=== PATIENT | female | born 1950 | race Caucasian/White ===

== ENCOUNTER 2016-09-12 15:11 | Emergency (ER) | payer MEDICARE ==
[2016-09-12 16:13] VITALS: PULSE 80
--- NOTE | 2016-09-12 16:21 | ERPHSYRPT ---
- History of Present Illness Time Seen by Provider: 09/12/16 16:15 Source: patient Exam Limitations: no limitations Patient Subjective Stated Complaint: pt co pain to left buttock radiating down left leg, states feels like cramping pain, no injury,pt sees pain management this week and is getting pt for back Triage Nursing Assessment: pt alert, skin w/d,pink,resp easy,pt restless in bed , no injury noted to left hip or leg Physician History: C/O L paralumbar area radiating down L buttock and L calf area. States back pain is sharp and tightness to buttock and calf area. Started on Neurontin with minimal relief. 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 No bowel or urinary incontinence. Increase back pain with standing and movement and decrease with sitting. Pt. on [place] 10mg and did have X-ray on back along with TINGE unit with minimal relief. Able to move all extremities without numbness or tingling. Timing/Duration: day(s) (4) Method of Injury: bending, lifting Quality: radiating, sharp Back Pain Location: lumbar spine Back Pain Radiation: buttocks, upper legs, lower legs Severity of Pain-Max: severe Severity of Pain-Current: severe Modifying Factors: Improves With: immobilization (improves), movement (worsens) Associated Symptoms: lower back pain, muscle spasms, No fever, No chills, No loss of bowel control, No dizziness, No numbness in legs/feet, No tingling in legs/feet Previous symptoms: same symptoms as today, recently seen, recently treated Allergies/Adverse Reactions: No Known Drug Allergies Allergy (Verified 09/12/16 15:25) Home Medications: Alprazolam 1 mg [Xanax 1 mg] 0 mg PO TID 07/02/16 [History] Dicyclomine HCl 20 mg [Bentyl 20 mg] 0 mg PO .PRN 07/02/16 [History] Hydrocodone/APAP 10/325 mg [[place] 10/325 MG Tablet] 1 tab PO Q4H PRN PRN 07/02/16 [History] Ropinirole HCl 5 mg PO HS 07/02/16 [History] Hx Tetanus, Diphtheria Vaccination/Date Given: No Hx Influenza Vaccination/Date Given: No Hx Pneumococcal Vaccination/Date Given: No Immunizations Up to Date: Yes - Review of Systems Constitutional: No Fever, No Chills Eyes: No Symptoms Ears, Nose, & Throat: No Symptoms Respiratory: No Cough, No Dyspnea Cardiac: No Chest Pain, No Edema, No Syncope Abdominal/Gastrointestinal: No Abdominal Pain, No Nausea, No Vomiting, No Diarrhea Genitourinary Symptoms: No Dysuria Musculoskeletal: Back Pain, No Neck Pain Skin: No Rash Neurological: No Dizziness, No Focal Weakness, No Sensory Changes Psychological: No Symptoms Endocrine: No Symptoms All Other Systems: Reviewed and Negative - Past Medical History Pertinent Past Medical History: Yes Neurological History: No Pertinent History ENT History: No Pertinent History Cardiac History: No Pertinent History Respiratory History: No Pertinent History Endocrine Medical History: No Pertinent History Musculoskeletal History: Other GI Medical History: No Pertinent History, Colorectal Cancer History: No Pertinent History Psycho-Social History: Depression Female Reproductive Disorders: No Pertinent History Other Medical History: R SHOULDER RTC ISSUES NO SURGERY,chronic back pain - Past Surgical History Past Surgical History: Yes Neuro Surgical History: No Pertinent History Cardiac: No Pertinent History Respiratory: No Pertinent History Gastrointestinal: Appendectomy, Cholecystectomy, Colon Resection Genitourinary: No Pertinent History Musculoskeletal: No Pertinent History, Orthopedic Surgery Female Surgical History: Hysterectomy - Social History Smoking Status: Never smoker Exposure to second hand smoke: No Drug Use: none Patient Lives Alone: No - Female History Hx Last Menstrual Period: post Hx Now: No - Nursing Vital Signs Temperature: 97.0 F Temperature Source: Oral Pulse Rate: 80 Respiratory Rate: 18 Pain Intensity: 10 - Physical Exam General Appearance: no apparent distress, alert Eye Exam: PERRL/EOMI, eyes nml inspection Neck Exam: normal inspection, non-tender, supple, full range of motion, No meningismus, No midline tenderness Respiratory Exam: normal breath sounds, lungs clear, No respiratory distress Cardiovascular Exam: regular rate/rhythm, normal heart sounds Gastrointestinal Exam: soft, No tenderness, No mass Back Exam: vertebral tenderness (L paralumbar tenderness), decreased range of motion, muscle spasm (L paralumbar area) Extremity Exam: normal inspection, normal range of motion, No calf tenderness, No pedal edema Peripheral Pulses: dorsalis-pedis (R): 2+, dorsalis-pedis (L): 2+ Neurologic Exam: alert, oriented x 3, cooperative, program clerk II-XII nml as tested, normal mood/affect, nml station & gait, sensation nml, No motor deficits Skin Exam: normal color, warm, dry, No rash SpO2 Interpretation: normal SpO2: 99 Oxygen Delivery: Room Air - Course Nursing assessment & vital signs reviewed: Yes - Progress Progress: improved Progress Note: 09/12/16 16:29 Given Demerol/Solumedrol with some relief of her symptoms. Counseled pt/family regarding: diagnosis - Departure Time of Disposition: 16:29 Departure Disposition: Home Clinical Impression: Low back pain potentially associated with radiculopathy Condition: Stable Critical Care Time: No Instructions: Chronic Pain -- Adult, Low Back Pain Additional Instructions: May take Alleve for pain/inflamation. RX: Prednisone Return for worse pain, numbness, weakness or any problems.
[2016-09-12] MEDS ORDERED: DEMEROL 50 MG IM ONE (16:31)
[2016-09-12] MEDS ORDERED: solu-MEDROL 125 MG IM ONE (16:32)
[2016-09-12] MEDS ORDERED: solu-MEDROL 125 MG ONE (16:34)
[2016-09-12] MEDS ORDERED: DEMEROL 50 MG ONE (16:34)
[2016-09-12 16:53] VITALS: BP 114/53; O2SAT 98
== END 2016-09-12 16:56 | disposition home or self-care (01) ==
LOC: ED 15:11
DX: M54.5 Low back pain (principal); X50.0XXA Overexertion from strenuous movement or load, initial encounter; Y93.F2 Activity, caregiving, lifting; Z79.899 Other long term (current) drug therapy
CPT/HCPCS: 96372; 99284; J2175; J2930

== ENCOUNTER 2018-08-01 16:51 | Emergency (ER) | payer MEDICARE ==
--- NOTE | 2018-08-01 17:21 | ERPHSYRPT ---
- History of Present Illness Time Seen by Provider: 08/01/18 17:08 Source: patient Exam Limitations: no limitations Patient Subjective Stated Complaint: Pt states "Approx two hours ago I was eating a banana and I am not sure if my dentures lifted up or what but my bottom gums just hurt so bad. Worst pain I ever had." Triage Nursing Assessment: Pt alert and oriented X 3, skin pwd. PT ambulates with an upright steady gait, able so speak in complete full clear sentences. PT has some redness noted under bottom dentures. Physician History: Pt states, she was eating banana about 2 hours ago, a piece somehow got stuck under her denture, causing severe pain. She removed her denture, and the banana chunk, but the pain is still very severe. She denies throat or tongue swelling, no vomiting, SOB, severe headaches, other complaints, she speaks in sentences, no stridor or muffled voice. Timing/Duration: abrupt onset Severity: severe ENT Location: mouth Prearrival Treatment: no prearrival treatment Modifying Factors: Improves With: nothing Associated Symptoms: other (pain of the mouth floor.) Allergies/Adverse Reactions: No Known Drug Allergies Allergy (Verified 09/12/16 15:25) Home Medications: Dicyclomine HCl 20 mg [Bentyl 20 mg] 0 mg PO .PRN 07/02/16 [History] Hydrocodone/APAP 10/325 mg [[place] 10/325 MG Tablet] 1 tab PO Q4H PRN PRN 07/02/16 [History] Ropinirole HCl 5 mg PO HS 07/02/16 [History] Hx Tetanus, Diphtheria Vaccination/Date Given: Yes Hx Influenza Vaccination/Date Given: No Hx Pneumococcal Vaccination/Date Given: No Immunizations Up to Date: Yes - Review of Systems Constitutional: No Symptoms Eyes: No Symptoms Ears, Nose, & Throat: Mouth Pain, No Mouth Swelling, No Throat Pain, No Throat Swelling, No Hoarse, No Painful Swallowing, No Stridor Respiratory: No Symptoms Cardiac: No Symptoms Abdominal/Gastrointestinal: No Symptoms Musculoskeletal: No Symptoms Skin: No Symptoms Neurological: No Symptoms All Other Systems: Reviewed and Negative - Past Medical History Pertinent Past Medical History: Yes Neurological History: No Pertinent History ENT History: No Pertinent History Cardiac History: No Pertinent History Respiratory History: No Pertinent History Endocrine Medical History: No Pertinent History Musculoskeletal History: Other GI Medical History: No Pertinent History, Colorectal Cancer History: No Pertinent History Psycho-Social History: Depression Female Reproductive Disorders: No Pertinent History Other Medical History: R SHOULDER RTC ISSUES NO SURGERY,chronic back pain - Past Surgical History Past Surgical History: Yes Neuro Surgical History: No Pertinent History Cardiac: No Pertinent History Respiratory: No Pertinent History Gastrointestinal: Appendectomy, Cholecystectomy, Colon Resection Genitourinary: No Pertinent History Musculoskeletal: No Pertinent History, Orthopedic Surgery Female Surgical History: Hysterectomy - Social History Smoking Status: Never smoker Exposure to second hand smoke: Yes Drug Use: none Patient Lives Alone: No - Female History Hx Now: No - Nursing Vital Signs Nursing Vital Signs: Initial Vital Signs Temperature 97.8 F 08/01/18 16:56 Pulse Rate 86 08/01/18 16:56 Respiratory Rate 16 08/01/18 16:56 Blood Pressure 151/82 08/01/18 16:56 O2 Sat by Pulse Oximetry 100 08/01/18 16:56 Pain Scale Pain Intensity 10 - Physical Exam General Appearance: no apparent distress Eye Exam: bilateral eye: PERRL, EOMI Nasal Exam: normal inspection Throat Exam: normal, pharynx normal (no teeth in the lower gumline, there is slight soft tissue swelling of the gum on the right lower forntal region, but no lesion or bleeding, no mouth floor edema. ) Neck Exam: normal inspection, non-tender, supple, trachea midline, No JVD, No lymphadenopathy (R), No lymphadenopathy (L) Cardiovascular/Respiratory Exam: chest non-tender, normal breath sounds, regular rate/rhythm, heart sounds normal, no JVD Abdominal Exam: non-tender, soft Neurologic Exam: alert, oriented x 3, cooperative, normal mood/affect Skin Exam: normal color, warm, dry, No rash SpO2 Interpretation: normal SpO2: 100 O2 Delivery: Room Air - Course Nursing assessment & vital signs reviewed: Yes - Progress Progress: unchanged Progress Note: 08/01/18 17:21 Pt has been drinking ice water, swallowing, no sign of distress, or difficulty breathing, will discharge her advising to keep her denture out for 1-2 days, follow up with her dentist next week if still painful, return if severe headaches, vomiting, difficulty swallowing or fever> 102F. Counseled pt/family regarding: diagnosis, need for follow-up (with dentist) - Departure Departure Disposition: Home Clinical Impression: Gum symptoms Condition: Stable Critical Care Time: No Referrals: DONALD VASQUEZ [Primary Care Provider] - Instructions: Soft Diet, Gingivitis (DC) Additional Instructions: Keep denture out x 1-2 days, and rinse with saline solution frequently, follow up with your dentist next week, return if severe pain, headaches, swelling, difficulty swallowing or vomiting, fever> 102 F!
[2018-08-01 17:34] VITALS: BP 129/81; PULSE 88; O2SAT 98
== END 2018-08-01 17:34 | disposition home or self-care (01) ==
LOC: ED 16:51
DX: K05.6 Periodontal disease, unspecified (principal); K13.79 Other lesions of oral mucosa
CPT/HCPCS: 99283

== ENCOUNTER 2019-01-24 07:38 | Emergency (ER) | payer MEDICARE ==
[2019-01-24] MEDS ORDERED: DECADRON 10MG INJ. IM ONE (08:17)
[2019-01-24] MEDS ORDERED: DECADRON 10MG INJ. ONE (08:22)
[2019-01-24 08:34] VITALS: O2SAT 98
[2019-01-24 09:14] VITALS: BP 143/67; PULSE 75
--- NOTE | 2019-01-24 11:55 | ERPHSYRPT ---
- History of Present Illness Time Seen by Provider: 01/24/19 09:00 Source: patient Exam Limitations: no limitations Patient Subjective Stated Complaint: pt here for rash to left side of neck since , she has been taking benadryl, and creams and she said it is getting worse Triage Nursing Assessment: pt alert,walked in, resp easy, skin w/d/p. has rash to left side of neck, no drainage Timing/Duration: today Quality: burning, itchy Severity: moderate Location: neck Possible Causes: no cause identified Modifying Factors: Improves With: antihistamine (not helpful) Associated Symptoms: change in skin texture, paresthesia Allergies/Adverse Reactions: No Known Drug Allergies Allergy (Verified 01/24/19 07:53) Home Medications: Dicyclomine HCl 20 mg [Bentyl 20 mg] 0 mg PO .PRN 07/02/16 [History] Hydrocodone/APAP 10/325 mg [[place] 10/325 MG Tablet] 1 tab PO Q4H PRN PRN 07/02/16 [History] Ropinirole HCl 5 mg PO HS 07/02/16 [History] Hx Tetanus, Diphtheria Vaccination/Date Given: Yes Hx Influenza Vaccination/Date Given: No Hx Pneumococcal Vaccination/Date Given: No Immunizations Up to Date: Yes - Review of Systems Constitutional: No Symptoms, No Fever Eyes: No Symptoms Ears, Nose, & Throat: No Symptoms Respiratory: No Symptoms Cardiac: No Symptoms Abdominal/Gastrointestinal: No Symptoms Genitourinary Symptoms: No Symptoms Musculoskeletal: No Symptoms Skin: Rash (left side of neck) Neurological: No Symptoms Psychological: No Symptoms Endocrine: No Symptoms Hematologic/Lymphatic: No Symptoms Immunological/Allergic: No Symptoms All Other Systems: Reviewed and Negative - Past Medical History Pertinent Past Medical History: Yes Neurological History: No Pertinent History ENT History: No Pertinent History Cardiac History: No Pertinent History Respiratory History: No Pertinent History Endocrine Medical History: No Pertinent History Musculoskeletal History: Other GI Medical History: No Pertinent History, Colorectal Cancer History: No Pertinent History Psycho-Social History: Depression Female Reproductive Disorders: No Pertinent History Other Medical History: R SHOULDER RTC ISSUES NO SURGERY,chronic back pain, hx of colon ca - Past Surgical History Past Surgical History: Yes Neuro Surgical History: No Pertinent History Cardiac: No Pertinent History Respiratory: No Pertinent History Gastrointestinal: Appendectomy, Cholecystectomy, Colon Resection Genitourinary: No Pertinent History Musculoskeletal: No Pertinent History, Orthopedic Surgery Female Surgical History: Hysterectomy - Social History Smoking Status: Never smoker Exposure to second hand smoke: No Drug Use: none Patient Lives Alone: No Significant Family History: no pertinent family hx - Female History Hx Last Menstrual Period: post Hx Now: No - Nursing Vital Signs Nursing Vital Signs: Initial Vital Signs Temperature 97 F 01/24/19 07:47 Pulse Rate 85 01/24/19 07:47 Respiratory Rate 16 01/24/19 07:47 Blood Pressure 131/83 01/24/19 07:47 O2 Sat by Pulse Oximetry 99 01/24/19 07:47 Pain Scale Pain Intensity 0 - Physical Exam General Appearance: no apparent distress Eye Exam: PERRL/EOMI, eyes nml inspection Ears, Nose, Throat Exam: normal ENT inspection, TMs normal, moist mucous membranes Neck Exam: other (early vesicular rash left neck dermatome c/w herpes zoster) Respiratory Exam: normal breath sounds Cardiovascular Exam: regular rate/rhythm Gastrointestinal/Abdomen Exam: soft Pelvic Exam: not done Rectal Exam: deferred Back Exam: normal inspection Extremity Exam: normal inspection Neurologic Exam: alert, oriented x 3, cooperative Skin Exam: normal color SpO2 Interpretation: normal SpO2: 98 O2 Delivery: Room Air - Course Nursing assessment & vital signs reviewed: Yes Ordered Tests: Medication Summary Discontinued Medications Generic Name Dose Route Start Last Admin Trade Name Indira PRN Reason Stop Dose Admin Dexamethasone Sodium Phosphate 10 mg 01/24/19 08:17 01/24/19 08:24 Decadron 10mg Inj. IM 01/24/19 08:18 10 mg STAT ONE Administration Dexamethasone Sodium Phosphate Confirm 01/24/19 08:22 Decadron 10mg Inj. Administered 01/24/19 08:23 Dose 10 mg .ROUTE .STK-MED ONE - Progress Progress: unchanged Progress Note: 01/24/19 11:55 Exam c/w shingles. No oozing lesions. - Departure Departure Disposition: Home Clinical Impression: Shingles Qualifiers: Herpes zoster complications: without complications Qualified Code(s): B02.9 - Zoster without complications Condition: Stable Critical Care Time: No Referrals: DONALD VASQUEZ [Primary Care Provider] - Instructions: Shingles (DC) Prescriptions: Famciclovir [Famvir] 500 mg PO TID #21 tablet
== END 2019-01-24 09:19 | disposition home or self-care (01) ==
LOC: ED 07:38
DX: B02.9 Zoster without complications (principal)
CPT/HCPCS: 96372; 99283; J1100

== ENCOUNTER 2019-04-01 20:00 | Emergency (ER) | payer MEDICARE ==
[2019-04-01] MEDS ORDERED: Zofran 4 MG/2 ML VIAL IV ONE ×2 (20:21→23:54)
[2019-04-01] MEDS ORDERED: Sodium Chloride 0.9% 1000 ML 1,000 ML IV STA (20:21)
[2019-04-01] MEDS ORDERED: Pepcid 20 MG VIAL IV ONE ×3 (20:21→20:57)
[2019-04-01] MEDS ORDERED: PROTONIX 40 MG IV IV ONE ×2 (20:21→20:29)
[2019-04-01] MEDS ORDERED: Zofran 4 MG/2 ML VIAL ONE (20:28)
[2019-04-01] MEDS ORDERED: Sodium Chloride 0.9% 1000 ML 1,000 ML ONE (20:29)
[2019-04-01 20:44] LABS: Absolute Neutrophil Ct (ANC) 5.59 (1.4-6.9); BASOPHIL % 0.2 % (0.0-0.4); Basophil (Absolute #) 0.02 (0-0.4); Eosinophil % 0.9 % (0.00-5.0); Eosinophil (Absolute #) 0.08 (0-0.5); Hematocrit 27.8 % (35-47); Hemoglobin 8.6 gm/dl (12.0-16.0); Lymphocyte (Absolute #) 2.55 (1.0-4.6); Lymphocytes % 29.1 % (24.0-44.0); Mean Cell Volume 93.3 fl (78-100); Mean Corpuscular Hemoglobin 28.9 pg (26-32); Mean Corpuscular Hgb Concent. 30.9 g/dl (32-36); Mean Platelet Volume 10.7 fl (6-9.5); Monocyte (Absolute #) 0.52 (0.0-1.3); Monocytes % 5.9 % (0.0-12.0); Neutrophil % 63.9 % (36.0-66.0); Platelet Count 226 K/mm3 (150-450); Red Blood Count 2.98 M/mm3 (4.1-5.4); White Blood Count 8.8 K/mm3 (4.0-10.5)
[2019-04-01 20:52] LABS: INR 1.06 (0.8-3.0)
[2019-04-01 21:01] LABS: ALBUMIN 3.2 g/dL (3.5-5.0); ALKALINE PHOSPHATASE 57 U/L (38-126); ANION GAP 9.7 MEQ/L (5-15); BLOOD UREA NITROGEN 19 mg/dL (7-17); CHLORIDE 102 mmol/L (98-107); Calcium 8.6 mg/dL (8.4-10.2); Carbon Dioxide 29 mmol/L (22-30); Creatinine 1 0.67 mg/dL (0.52-1.04); Glucose 175 mg/dL (74-106); Potassium 3.2 mmol/L (3.5-5.1); SGOT/AST 27 U/L (14-36); SGPT/ALT 17 U/L (0-35); SODIUM 138 mmol/L (137-145); Total Protein 5.9 g/dL (6.3-8.2)
--- NOTE | 2019-04-01 21:11 | ERPHSYRPT ---
- History of Present Illness Time Seen by Provider: 04/01/19 21:07 Source: patient, family Exam Limitations: no limitations Patient Subjective Stated Complaint: pt states she ahs been feeling unwell todya nd prior to arrival vomited blood and large clots. Triage Nursing Assessment: pt alert and oriented, ansers questions approp. respirations nonlabored with lungs cta. pt ambulatoryw ith steady gait noted. abd soft and nontender with bowel sounds present x4 Physician History: pt is 5 year colon cancer survivor after chem adjuvant with no recurrence on check 2 months ago including scopings including EGD; pt unsure last CT but [facility] on transfer there - coughing up fresh blood today and feeling dizzy with no pain - has been taking NSAIDS for unrelated musculoskeletal pain more lately - no blood thinners no prior GI bleed - ulcer years ago - not on therapy at this time; non smoker Timing/Duration: today Severity: moderate Modifying Factors: Improves With: nothing Associated Symptoms: nausea, vomiting, cough, No abdominal pain Allergies/Adverse Reactions: No Known Drug Allergies Allergy (Verified 04/01/19 20:31) Home Medications: Dicyclomine HCl 20 mg [Bentyl 20 mg] 0 mg PO .PRN 07/02/16 [History] Hydrocodone/APAP 10/325 mg [[place] 10/325 MG Tablet] 1 tab PO Q4H PRN PRN 07/02/16 [History] Ropinirole HCl 5 mg PO HS 07/02/16 [History] Hx Tetanus, Diphtheria Vaccination/Date Given: Yes Hx Influenza Vaccination/Date Given: No Hx Pneumococcal Vaccination/Date Given: No Immunizations Up to Date: Yes - Review of Systems Constitutional: No Fever, No Chills Eyes: No Symptoms Ears, Nose, & Throat: No Symptoms Respiratory: Cough, No Dyspnea Cardiac: No Chest Pain, No Edema, No Syncope Abdominal/Gastrointestinal: Nausea, Vomiting, No Abdominal Pain, No Diarrhea Genitourinary Symptoms: No Dysuria Musculoskeletal: No Back Pain, No Neck Pain Skin: No Rash Neurological: No Dizziness, No Focal Weakness, No Sensory Changes Psychological: No Symptoms Endocrine: No Symptoms Hematologic/Lymphatic: No Symptoms Immunological/Allergic: No Symptoms All Other Systems: Reviewed and Negative - Past Medical History Pertinent Past Medical History: Yes Neurological History: No Pertinent History ENT History: No Pertinent History Cardiac History: No Pertinent History Respiratory History: No Pertinent History Endocrine Medical History: No Pertinent History Musculoskeletal History: Other GI Medical History: No Pertinent History, Colorectal Cancer History: No Pertinent History Psycho-Social History: Depression Female Reproductive Disorders: No Pertinent History Other Medical History: R SHOULDER RTC ISSUES NO SURGERY,chronic back pain, hx of colon ca - Past Surgical History Past Surgical History: Yes Neuro Surgical History: No Pertinent History Cardiac: No Pertinent History Respiratory: No Pertinent History Gastrointestinal: Appendectomy, Cholecystectomy, Colon Resection Genitourinary: No Pertinent History Musculoskeletal: No Pertinent History, Orthopedic Surgery Female Surgical History: Hysterectomy - Social History Smoking Status: Never smoker Exposure to second hand smoke: No Drug Use: none Patient Lives Alone: No Significant Family History: no pertinent family hx - Nursing Vital Signs Nursing Vital Signs: Initial Vital Signs Temperature 98.0 F 04/01/19 20:09 Pulse Rate 112 H 04/01/19 20:09 Respiratory Rate 20 04/01/19 20:09 Blood Pressure 100/70 04/01/19 20:09 O2 Sat by Pulse Oximetry 100 04/01/19 20:09 Pain Scale Pain Intensity 0 - Physical Exam General Appearance: no apparent distress, alert Eye Exam: PERRL/EOMI, eyes nml inspection Ears, Nose, Throat Exam: normal ENT inspection, TMs normal, pharynx normal, moist mucous membranes Neck Exam: normal inspection, non-tender, supple, full range of motion Respiratory Exam: normal breath sounds, lungs clear, No respiratory distress Cardiovascular Exam: regular rate/rhythm, normal heart sounds, normal peripheral pulses Gastrointestinal/Abdomen Exam: soft, normal bowel sounds, No tenderness, No mass Back Exam: normal inspection, normal range of motion, No CVA tenderness, No vertebral tenderness Extremity Exam: normal inspection, normal range of motion, pelvis stable Neurologic Exam: alert, oriented x 3, cooperative, normal mood/affect, nml cerebellar function, nml station & gait, sensation nml, No motor deficits Skin Exam: normal color, warm, dry, No rash Lymphatic Exam: No adenopathy SpO2 Interpretation: normal SpO2: 100 O2 Delivery: Room Air - Course Nursing assessment & vital signs reviewed: Yes - Radiology Exams Chest X-ray Interpretation: Reviewed by me, Other (granulomata and atelectasis) Ordered Tests: Active Orders 24 hr Category Date Time Status Reading Intervention Teacher STAT Care 04/01/19 20:22 Active IV Insertion STAT Care 04/01/19 20:21 Active IV Insertion-2nd Peripheral STAT Care 04/01/19 20:21 Active NPO (ED) STAT Care 04/01/19 20:21 Active Pulse Oximetry (ED) STAT Care 04/01/19 20:21 Active Re-Check Vital Signs STAT Care 04/01/19 20:21 Active CHEST 1 VIEW (PORTABLE) Stat Exams 04/01/19 21:12 Taken CBC W DIFF Stat Lab 04/01/19 20:41 Completed CMP Stat Lab 04/01/19 20:41 Completed Lactic Acid Stat Lab 04/01/19 20:09 Completed Occult Blood, Other Screening Stat Lab 04/01/19 20:21 Uncollected PROTIME WITH INR Stat Lab 04/01/19 20:41 Completed PTT Stat Lab 04/01/19 20:41 Completed UA W/RFX UR CULTURE Stat Lab 04/01/19 20:21 Uncollected Medication Summary Discontinued Medications Generic Name Dose Route Start Last Admin Trade Name Freq PRN Reason Stop Dose Admin Famotidine 20 mg 04/01/19 20:21 04/01/19 20:58 Pepcid 20 Mg Vial IV 04/01/19 20:22 20 mg STAT ONE Administration Famotidine Confirm 04/01/19 20:28 Pepcid 20 Mg Vial Administered 04/01/19 20:29 Dose 20 mg IV .STK-MED ONE Famotidine Confirm 04/01/19 20:57 Pepcid 20 Mg Vial Administered 04/01/19 20:58 Dose 20 mg IV .STK-MED ONE Sodium Chloride 1,000 mls @ 999 mls/hr 04/01/19 20:21 04/01/19 20:43 Sodium Chloride 0.9% 1000 Ml IV 04/01/19 21:21 999 mls/hr .Q1H1M STA Administration Sodium Chloride Confirm 04/01/19 20:29 Sodium Chloride 0.9% 1000 Ml Administered 04/01/19 20:30 Dose 1,000 mls @ ud .ROUTE .STK-MED ONE Ondansetron HCl 4 mg 04/01/19 20:21 04/01/19 20:49 Zofran 4 Mg/2 Ml Vial IV 04/01/19 20:22 4 mg STAT ONE Administration Ondansetron HCl Confirm 04/01/19 20:28 Zofran 4 Mg/2 Ml Vial Administered 04/01/19 20:29 Dose 4 mg .ROUTE .STK-MED ONE Pantoprazole Sodium 40 mg 04/01/19 20:21 04/01/19 20:49 Protonix 40 Mg Iv IV 04/01/19 20:22 40 mg STAT ONE Administration Pantoprazole Sodium Confirm 04/01/19 20:29 Protonix 40 Mg Iv Administered 04/01/19 20:30 Dose 40 mg IV .STK-MED ONE Lab/Rad Data: Laboratory Result Diagrams 04/01/19 20:41 04/01/19 20:41 Laboratory Results 04/01/19 04/01/19 04/01/19 Range/Units 20:41 20:41 20:41 WBC (4.0-10.5) K/mm3 RBC (4.1-5.4) M/mm3 Hgb (12.0-16.0) gm/dl Hct (35-47) % MCV (78-100) fl MCH (26-32) pg MCHC (32-36) g/dl RDW (11.5-14.0) % Plt Count (150-450) K/mm3 MPV (6-9.5) fl Gran % (36.0-66.0) % Eos # (Auto) (0-0.5) Absolute Lymphs (auto) (1.0-4.6) Absolute Monos (auto) (0.0-1.3) Lymphocytes % (24.0-44.0) % Monocytes % (0.0-12.0) % Eosinophils % (0.00-5.0) % Basophils % (0.0-0.4) % Absolute Granulocytes (1.4-6.9) Basophils # (0-0.4) PT 12.0 (9.95-12.35) SECONDS INR 1.06 (0.8-3.0) APTT 24.8 L (25.3-37.0) SECONDS Sodium 138 (137-145) mmol/L Potassium 3.2 L (3.5-5.1) mmol/L Chloride 102 (98-107) mmol/L Carbon Dioxide 29 (22-30) mmol/L Anion Gap 9.7 (5-15) MEQ/L BUN 19 H (7-17) mg/dL Creatinine 0.67 (0.52-1.04) mg/dL Estimated GFR > 60.0 ML/MIN Glucose 175 H (74-106) mg/dL Lactic Acid (0.4-2.0) Calcium 8.6 (8.4-10.2) mg/dL Total Bilirubin 0.30 (0.2-1.3) mg/dL AST 27 (14-36) U/L ALT 17 (0-35) U/L Alkaline Phosphatase 57 (38-126) U/L Serum Total Protein 5.9 L (6.3-8.2) g/dL Albumin 3.2 L (3.5-5.0) g/dL ABO Group A Rh Factor POSITIVE Antibody Screen NEGATIVE (NEGATIVE) 04/01/19 04/01/19 Range/Units 20:41 20:09 WBC 8.8 (4.0-10.5) K/mm3 RBC 2.98 L (4.1-5.4) M/mm3 Hgb 8.6 L (12.0-16.0) gm/dl Hct 27.8 L (35-47) % MCV 93.3 (78-100) fl MCH 28.9 (26-32) pg MCHC 30.9 L (32-36) g/dl RDW 14.0 (11.5-14.0) % Plt Count 226 (150-450) K/mm3 MPV 10.7 H (6-9.5) fl Gran % 63.9 (36.0-66.0) % Eos # (Auto) 0.08 (0-0.5) Absolute Lymphs (auto) 2.55 (1.0-4.6) Absolute Monos (auto) 0.52 (0.0-1.3) Lymphocytes % 29.1 (24.0-44.0) % Monocytes % 5.9 (0.0-12.0) % Eosinophils % 0.9 (0.00-5.0) % Basophils % 0.2 (0.0-0.4) % Absolute Granulocytes 5.59 (1.4-6.9) Basophils # 0.02 (0-0.4) PT (9.95-12.35) SECONDS INR (0.8-3.0) APTT (25.3-37.0) SECONDS Sodium (137-145) mmol/L Potassium (3.5-5.1) mmol/L Chloride (98-107) mmol/L Carbon Dioxide (22-30) mmol/L Anion Gap (5-15) MEQ/L BUN (7-17) mg/dL Creatinine (0.52-1.04) mg/dL Estimated GFR ML/MIN Glucose (74-106) mg/dL Lactic Acid 1.6 (0.4-2.0) Calcium (8.4-10.2) mg/dL Total Bilirubin (0.2-1.3) mg/dL AST (14-36) U/L ALT (0-35) U/L Alkaline Phosphatase (38-126) U/L Serum Total Protein (6.3-8.2) g/dL Albumin (3.5-5.0) g/dL ABO Group Rh Factor Antibody Screen (NEGATIVE) - Progress Progress: improved, re-examined Progress Note: 04/01/19 23:22 discussed with family, pt , and Dr. Vergara at [facility] - pts choice of hospital and all believe best for transfer to [facility] for [facility] and work up Discussed with Dr.: Other (Dr. Ruiz at [facility]) Counseled pt/family regarding: lab results, diagnosis, need for follow-up, rad results - Departure Departure Disposition: Transfer Clinical Impression: UGI bleed Condition: Good Critical Care Time: Yes Critical Care Time(excluding separately billable procedures): Critical 30-74 mins (pt presented with dizziness and hypotensive adn was resucitated to BP above 100 in about 35 minutes and remained normotensive) Referrals: DONALD VASQUEZ [Primary Care Provider] -
[2019-04-01 21:24] LABS: PTT 24.8 SECONDS (25.3-37.0)
[2019-04-01 21:27] LABS: ABO TYPING A; Antibody Screen NEGATIVE (NEGATIVE); RH TYPING POSITIVE
[2019-04-01] MEDS ORDERED: Hydromorphone 1 mg/ml Ampule IV ONE (23:53)
[2019-04-02] MEDS ORDERED: Hydromorphone 1 mg/ml Ampule ONE (00:01)
[2019-04-02] MEDS ORDERED: Zofran 4 MG/2 ML VIAL ONE (00:01)
[2019-04-02 01:07] VITALS: BP 112/64; PULSE 81; O2SAT 99
--- NOTE | 2019-04-02 07:17 | XRAY ---
Indication: Hemoptysis. Comparison: August 19, 2018. Portable apical lordotic chest remains clear. Heart is not enlarged again with left Port-A-Cath. Bony thorax intact again with mild degenerative changes and old left humerus fracture. Impression: Stable nonacute chest with chronic features.
== END 2019-04-02 00:32 | disposition short-term general hospital (02) ==
LOC: ED 20:00
DX: K92.2 Gastrointestinal hemorrhage, unspecified (principal); R42 Dizziness and giddiness; I95.9 Hypotension, unspecified; Z79.899 Other long term (current) drug therapy; Z85.038 Personal history of other malignant neoplasm of large intestine
CPT/HCPCS: 36000; 36415; 71045; 80053; 83605; 85025; 85610; 85730; 86850; 86900; 86901; 93041; 94760; 96360; 96374; 96375; 96376; 99285; 99291; J1170; J2405

== ENCOUNTER 2021-04-03 16:16 | Emergency (ER) | payer MEDICARE ==
--- NOTE | 2021-04-03 16:29 | ERPHSYRPT ---
- History of Present Illness Time Seen by Provider: 04/03/21 16:29 Source: patient Exam Limitations: no limitations Physician History: This is a 70-year-old white female patient of Dr. Dacosta who for the last 3 weeks has been up and down a ladder. She did not fall or injure herself until today when she twisted her left knee at the gas station. Method of Injury: twisted Occurred: just prior to arrival Quality: constant, aching Severity of Pain-Max: mild (To moderate) Severity of Pain-Current: mild (To moderate) Lower Extremities Pain: thigh: left Associated Symptoms: other (Hurts to bear weight but can do so.) Allergies/Adverse Reactions: No Known Drug Allergies Allergy (Verified 04/03/21 16:22) Home Medications: Dicyclomine HCl 20 mg [Bentyl 20 mg] 0 mg PO .PRN 07/02/16 [History] Hydrocodone/APAP 10/325 mg [[place] 10/325 MG Tablet] 1 tab PO Q4H PRN PRN 07/02/16 [History] Ropinirole HCl 5 mg PO HS 07/02/16 [History] Amphet Asp/Amphet/D-Amphet [Adderall 30 mg Tablet] 30 mg PO DAILY 04/03/21 [History] Fluticasone Propionate [Flonase Allergy Relief] 9.9 ml NS DAILY PRN 04/03/21 [History] Hx Tetanus, Diphtheria Vaccination/Date Given: Yes Hx Influenza Vaccination/Date Given: No Hx Pneumococcal Vaccination/Date Given: No Travel Risk - International Travel Have you traveled outside of the country in past 3 weeks: No - Coronavirus Screening Are you exhibiting any of the following symptoms?: No Close contact with a COVID-19 positive Pt in past 14-21 Days: No - Review of Systems Constitutional: No Symptoms Eyes: No Symptoms Ears, Nose, & Throat: No Symptoms Respiratory: No Symptoms Cardiac: No Symptoms Abdominal/Gastrointestinal: No Symptoms Genitourinary Symptoms: No Symptoms Musculoskeletal: Injury (Left knee by twisting) Skin: No Symptoms Neurological: No Symptoms Psychological: No Symptoms Endocrine: No Symptoms Hematologic/Lymphatic: No Symptoms Immunological/Allergic: No Symptoms All Other Systems: Reviewed and Negative - Past Medical History Pertinent Past Medical History: Yes Neurological History: No Pertinent History ENT History: No Pertinent History Cardiac History: No Pertinent History Respiratory History: No Pertinent History Endocrine Medical History: No Pertinent History Musculoskeletal History: Other GI Medical History: Colorectal Cancer History: No Pertinent History Psycho-Social History: Depression Female Reproductive Disorders: No Pertinent History Other Medical History: R SHOULDER RTC ISSUES NO SURGERY,chronic back pain, hx of colon ca - Past Surgical History Past Surgical History: Yes Neuro Surgical History: No Pertinent History Cardiac: No Pertinent History Respiratory: No Pertinent History Gastrointestinal: Appendectomy, Cholecystectomy, Colon Resection Genitourinary: No Pertinent History Musculoskeletal: No Pertinent History, Orthopedic Surgery Female Surgical History: Hysterectomy, Tubal Ligation Other Surgical History: port placed - Social History Smoking Status: Never smoker Exposure to second hand smoke: No Drug Use: none Patient Lives Alone: No Significant Family History: no pertinent family hx - Nursing Vital Signs Nursing Vital Signs: Initial Vital Signs Temperature 98.7 F 04/03/21 16:23 Pulse Rate 120 H 04/03/21 16:23 Respiratory Rate 18 04/03/21 16:23 Blood Pressure 122/78 04/03/21 16:23 O2 Sat by Pulse Oximetry 96 04/03/21 16:23 Pain Scale Pain Intensity 10 - Physical Exam General Appearance: no apparent distress, alert, anxiety Eyes, Ears, Nose, Throat Exam: normal ENT inspection, moist mucous membranes Neck Exam: normal inspection, non-tender, supple, full range of motion Cardiovascular/Respiratory Exam: chest non-tender, no respiratory distress Gastrointestinal/Abdominal Exam: non-tender Back Exam: normal inspection, normal range of motion, No CVA tenderness, No vertebral tenderness Hips Exam: bilateral: non-tender, normal inspection, normal range of motion, no evidence of injury Legs Exam: bilateral leg: non-tender, normal inspection, normal range of motion, no evidence of injury Knees Exam: right knee: non-tender, left knee: soft tissue tenderness, bilateral knee: normal inspection, normal range of motion, no evidence of injury Ankle Exam: bilateral ankle: non-tender, normal inspection, normal range of motion, no evidence of injury Foot Exam: bilateral foot: non-tender, normal inspection, normal range of motion, no evidence of injury Neuro/Tendon Exam: normal sensation, normal motor functions, normal tendon functions Mental Status Exam: alert, oriented x 3, cooperative Skin Exam: normal color, warm, dry SpO2 Interpretation: normal O2 Delivery: Room Air - Course Nursing assessment & vital signs reviewed: Yes Ordered Tests: Active Orders 24 hr Category Date Time Status KNEE (3 VIEWS) Stat Exams 04/03/21 16:30 Taken - Progress Progress: pain not gone completely Progress Note: 04/03/21 17:12 X-ray of left knee shows no acute fracture or dislocation. Counseled pt/family regarding: diagnosis, need for follow-up, rad results - Departure Departure Disposition: Home Clinical Impression: Left knee pain Condition: Stable Critical Care Time: No Referrals: DONALD DACOSTA [Primary Care Provider] - Follow up/PCP as directed Additional Instructions: Ice pack to tender knee 3 times a day for the next 48 hours. Follow-up with your primary care physician for further management and evaluation of your left knee pain. You may also follow-up at the [facility] orthopedic clinic for persistent knee pain Prescriptions: Hydrocodone/APAP 5/325 [[place] 5/325 mg] 1 each PO Q8H PRN PRN #6 tablet MDD 3 PRN Reason: Pain Prednisone 10 mg [Deltasone 10 mg] 10 mg PO TID #12 tablet
--- NOTE | 2021-04-03 17:09 | XRAY ---
Indication: Pain following twisting injury. Comparison: None 3 view left knee demonstrate mild osteopenia, tiny patella spur, small nonspecific effusion, and small posterior fabella. No other bony, articular, or soft tissue abnormalities.
[2021-04-03] MEDS ORDERED: PERCOCET TABLET 5/325MG PO STA (17:17)
[2021-04-03] MEDS ORDERED: PERCOCET TABLET 5/325MG ONE (17:19)
[2021-04-03 17:23] VITALS: PULSE 100
[2021-04-03 17:43] VITALS: BP 145/89; O2SAT 95
== END 2021-04-03 17:43 | disposition home or self-care (01) ==
LOC: ED 16:16
DX: M25.562 Pain in left knee (principal); X50.1XXA Overexertion from prolonged static or awkward postures, initial encounter; Y92.524 Gas station as the place of occurrence of the external cause; Z79.891 Long term (current) use of opiate analgesic
CPT/HCPCS: 73562; 99284; A9270-GY

== ENCOUNTER 2021-04-09 08:26 | Day surgery (SDC) | payer MEDICARE ==
--- NOTE | 2021-04-09 07:46 | HP ---
DATE OF SURGERY: 04/09/2021 HISTORY OF PRESENT ILLNESS: The patient is a 70-year-old with no bloody stools, no change in bowel movements. She had some anemia. She has prior history of colon cancer and is in need of follow up EGD and colonoscopy. PAST MEDICAL HISTORY: Colorectal cancer. Depression. Chronic back pain. PAST SURGICAL HISTORY: Appendectomy. Broken arm. Hysterectomy. Colon resection in the past. MEDICATIONS: Ropinirole, Adderall, Flonase. ALLERGIES: NKDA. FAMILY HISTORY: Family history of cancer. SOCIAL HISTORY: No smoking or alcohol abuse. REVIEW OF SYSTEMS: Fourteen systems reviewed. No chest pain or palpitations. Other systems negative or noncontributory as above and per preadmission questionnaire. PHYSICAL EXAMINATION: GENERAL: No acute distress. HEENT: Sclerae nonicteric. NECK: No JVD. CHEST: Equal excursion, nonlabored breathing. CVS: Regular rate and rhythm. ABDOMEN: Soft. No peritoneal signs. EXTREMITIES: No significant edema. NEURO: Alert, oriented, moving extremities symmetrically. RECTAL: Deferred timed to endoscopy exam. PSYCH: Appropriate mood and affect. IMPRESSION: Anemia, prior history of colon cancer. She is in need of EGD and colonoscopy for further evaluation. Risks and benefits explained in detail including but not limited to bleeding or infection, risk of bowel injury or perforation possibly requiring open procedure, risk of missed or nondiagnosis or incomplete exam possibly requiring barium enema, other studies or procedures. General risk of anesthesia or sedation, risk of bowel prep but not limited to, consent obtained. Will proceed with outpatient follow up EGD and colonoscopy given history of anemia.
[2021-04-09] MEDS ORDERED: Lactated Ringers 1,000 ML IV SCH (09:30)
[2021-04-09] MEDS ORDERED: Versed 2 MG/2 ML Injection ONE (10:34)
[2021-04-09] MEDS ORDERED: DIPRIVAN 200 MG/20 ML IV ONE ×2 (10:34→10:51)
[2021-04-09 12:07] VITALS: BP 122/75; PULSE 64; O2SAT 95
--- NOTE | 2021-04-10 07:56 | OP ---
SURGERY DATE/TIME: 04/09/2021 1039 PREOPERATIVE DIAGNOSES: 1) Anemia. 2) Prior history of colon cancer, need for upper and lower endoscopy. POSTOPERATIVE DIAGNOSES: 1) Erosive distal esophagitis. 2) Patent prior anastomosis. No gross cancer recurrence in the colon. 3) ASA Class II. 4) Withdrawal time about 6 minutes. 5) Prep fair. PROCEDURES: 1) EGD with cold biopsy of antrum to evaluate for Helicobacter pylori. 2) Cold biopsy distal esophagus to evaluate esophagitis versus early Vieira's, path pending. 3) Colonoscopy to cecum. SURGEON: Dr. Rashid Adam. ANESTHESIA: MAC. ESTIMATED BLOOD LOSS: Minimal. INDICATIONS: As noted above. Risks and benefits explained in detail and not limited to and consent obtained. DESCRIPTION OF PROCEDURE AND FINDINGS: Taken to the endoscopy room. MAC anesthesia introduced. After official time out and no disagreement with planned procedure, bite block positioned. Video gastroscope easily passed down the esophagus through the patent pylorus to the third portion of the duodenum. Third, second and first portion of the duodenum grossly unremarkable. Back in the stomach, she had a few little petechial blood spots, some minimal inflammation and gastropathy. Cold biopsy taken to evaluate for Helicobacter pylori. She did have significant reflux esophagitis lower part of the esophagus. Multiple cold biopsies taken of the distal esophagus to evaluate for path and to evaluate for Vieira's. There is multiple chronic esophagitis. Otherwise, no signs of any gross mass. The patient tolerated this procedure well. The gastroesophageal junction is about 36 cm. Attention is then turned to colonoscopy. Digital rectal exam did not reveal any rectal masses. Video colonoscope inserted and passed up through the slightly tortuous sigmoid, descending, transverse, ascending colon around to the cecum. Appendiceal orifice and valve were well visualized. Photo documented. Prep overall was fair. There were some liquidy stool and some solid debris suction irrigated as clear as possible but did slightly limit the exam for small lesions. The scope is slowly and carefully withdrawn over the next six minutes. No signs of any large polyps, masses or obstructing lesions. The prior anastomotic site is patent. No signs of any recurrence. The scope is withdrawn. It was a little bit of a difficult exam given the prep and the fact that the patient was quite restless and moving quite a bit but again no signs of any large polyps or obstructing lesions. I will review her chart to decide the ultimate follow up time for follow up colonoscopy down the road. In the meantime, I will write her for Protonix given her esophagitis. She would probably benefit from follow up upper endoscopy down the road as well.
== END 2021-04-09 11:55 | disposition home or self-care (01) ==
LOC: SDC 08:26
PROVIDERS: ATTEND Surgery
DX: K20.90 Esophagitis, unspecified without bleeding (principal); D64.9 Anemia, unspecified; Z85.038 Personal history of other malignant neoplasm of large intestine; Z79.899 Other long term (current) drug therapy
CPT/HCPCS: J1642; J2250; J2704

== ENCOUNTER 2022-07-29 10:33 | Day surgery (SDC) | payer MEDICARE ==
--- NOTE | 2022-07-29 08:46 | HP ---
DATE OF SURGERY: 07/29/2022 HISTORY OF PRESENT ILLNESS: The patient is a 72-year-old with anemia, history of colon cancer in the past. She is in need of upper and lower endoscopy to evaluate for upper or lower source of her anemia. Last upper endoscopy two or three years ago. Last colonoscopy was at least two years ago with history of colon cancer. She also had heme-occult positive in the past. No bloody stools or melena. No change in bowel movements. Family history negative for colon cancer. Personal history of colon cancer. PAST MEDICAL HISTORY: Colon cancer. PAST SURGICAL HISTORY: Upper endoscopy in the past. Colon resection in the past. MEDICATIONS: Antivert, ropinirole, Max, Bentyl, Adderall. ALLERGIES: NKDA. FAMILY HISTORY: Negative for colon cancer. SOCIAL HISTORY: No alcohol abuse. REVIEW OF SYSTEMS: Fourteen systems reviewed. No chest pain or palpitations. Other systems negative or noncontributory as above and per preadmission questionnaire. PHYSICAL EXAMINATION: BMI 26.89. GENERAL: No acute distress. HEENT: Sclerae nonicteric. NECK: No JVD. CHEST: Equal excursion. CVS: Regular rate and rhythm. ABDOMEN: Soft. No peritoneal signs. EXTREMITIES: No significant edema. NEURO: Alert, oriented, moving extremities symmetrically. RECTAL: Deferred timed to endoscopy exam. PSYCH: Appropriate mood and affect. SKIN: Dry. IMPRESSION: Anemia, needs upper and lower endoscopy to evaluate for upper or lower GI source. History of colon cancer in the past. She was shown the risk sheet, explained the procedure in detail including but not limited to bleeding or infection, risk of bowel injury or perforation possibly requiring open procedure, risk of missed or nondiagnosis or incomplete exam possibly requiring barium swallow, barium enema, other studies or procedures. General risk of anesthesia or sedation, risk of bowel prep but not limited to, consent obtained. Will proceed with EGD and colonoscopy as an outpatient.
[2022-07-29] MEDS ORDERED: Lactated Ringers 1,000 ML IV ONE (11:04)
[2022-07-29] MEDS ORDERED: DIPRIVAN 200 MG/20 ML IV ONE (12:36)
[2022-07-29 13:39] VITALS: BP 154/66; PULSE 88; O2SAT 100
[2022-07-29] MEDS ORDERED: Sodium Chloride 0.9% 10 ML FLUSH Syringe PORT FLUSH PRN (13:55)
--- NOTE | 2022-07-29 15:28 | OP ---
SURGERY DATE/TIME: 07/29/2022 1236 PREOPERATIVE DIAGNOSES: 1) Anemia unclear etiology. 2) Prior history of colon resection for cancer in the past. 3) Need for upper and lower endoscopy. 4) Incomplete bowel prep (colonoscopy canceled for today). POSTOPERATIVE DIAGNOSES: 1) Mild erosive gastritis with some petechial hemorrhage. 2) Moderate distal erosive esophagitis (5 to 6 cm long segment distal esophagus). 3) Very slight, tiny hiatal hernia. PROCEDURES: 1) EGD with cold biopsy of antrum to evaluate for Helicobacter pylori. 2) Multiple cold biopsies distal esophagitis for histology. SURGEON: Dr. Rashid Adam. SAMPLER FIRST: Low Rivera, Medical Student III. ANESTHESIA: MAC. ESTIMATED BLOOD LOSS: Minimal. INDICATIONS: As noted above. Risks and benefits explained in detail and not limited to and consent obtained. DESCRIPTION OF PROCEDURE AND FINDINGS: The patient is taken to the operating room. MAC anesthesia introduced. After official time out and no disagreement with planned procedure, bite block positioned. Video gastroscope easily passed down the esophagus through the patent pylorus to the third portion of the duodenum. Third, second and first portions of duodenum no signs of any ulcers or mucosal lesions. Scope pulled back in the stomach. There were some mild erosive esophagitis and some petechial hemorrhages. No signs of any ulcers or masses. On retroflex there was just a very slight weakness, very tiny early hiatal hernia noted on retroflex. The scope is pulled back. Gastroesophageal junction about 37 cm. There was moderate erosive esophagitis extending up about 5 or 6 cm up the esophagus. Multiple cold biopsies were taken for histology. No gross mass but definitely moderate severe erosive esophagitis. The scope is withdrawn after multiple cold biopsies taken. The patient tolerated the procedure well. There was no family to discuss the findings with in the waiting area.
== END 2022-07-29 13:40 | disposition home or self-care (01) ==
LOC: SDC 10:33
PROVIDERS: ATTEND Surgery
DX: Z08 Encounter for follow-up examination after completed treatment for malignant neoplasm (principal); Z85.038 Personal history of other malignant neoplasm of large intestine; D64.9 Anemia, unspecified; K29.70 Gastritis, unspecified, without bleeding; R23.3 Spontaneous ecchymoses; K20.90 Esophagitis, unspecified without bleeding; K44.9 Diaphragmatic hernia without obstruction or gangrene
CPT/HCPCS: J1642; J2704

== ENCOUNTER 2023-01-12 19:43 | Emergency (ER) | payer MEDICARE ==
[2023-01-12 19:49] VITALS: TEMP 96.4
--- NOTE | 2023-01-12 22:01 | ERPHSYRPT ---
- History of Present Illness Time Seen by Provider: 01/12/23 21:56 Historian: patient, family Exam Limitations: no limitations Patient Subjective Stated Complaint: I'm having colon spasms. Usually Bentyl will take care of it but today I couldn't get it under control. Triage Nursing Assessment: pt brought in by ambulance from home. Pt alert and oriented x4. Pt states, "I think I'm having colon spasms". Pt c/o abd pain across the entire abd. Abd soft with active bs x4 quad, tender on palpation. Pt has hx of colon cancer and does not have regualr bm's. Pt took a laxative this morning at home and thinks this is what threw her into these spasms. Pt did have small results from the laxative today. Physician History: pt has remote hx colon cancer without recurrence. hx of many years of similar colon spasms since relieved by bentyl- but did not help today so she came by EMS. Tender abd generally with guarding. normal neuro and mental status. chest clear ht reg without M. she took 2 dulculasx and got more pain. family confirmed hx as independent source as pt in lots of pain to respond to questions. discussed risks/benefits of CT, cbc, cmp, lactate, UA, IV morphine, benadryl, lipase, and they wish to proceed, these were ordered and results discussed. Timing/Duration: hour(s) Quality: pressure, stabbing Abdominal Pain Onset Location: generalized abdomen Pain Radiation: no radiation Severity of Pain-Max: moderate Severity of Pain-Current: moderate Modifying Factors: Improves With: nothing Associated Symptoms: denies symptoms Previous symptoms: same symptoms as today, recently treated Allergies/Adverse Reactions: No Known Drug Allergies Allergy (Verified 01/12/23 20:02) Home Medications: Dicyclomine HCl 20 mg [Bentyl 20 mg] 0 mg PO .PRN PRN 07/02/16 [History] Ropinirole HCl 5 mg PO HS 07/02/16 [History] Dextroamphetamine/Amphetamine [Adderall 30 mg Tablet] 30 mg PO DAILY 04/03/21 [History] Meclizine HCl 25 mg [Antivert 25 mg] 1 tab PO DAILY PRN PRN 07/01/22 [History] Hydrocodone/Acetaminophen [Hydrocodone-Acetamin 7.5-325] 1 tab PO Q6HPRN PRN 01/12/23 [History] Hx Tetanus, Diphtheria Vaccination/Date Given: Yes Hx Influenza Vaccination/Date Given: Yes Hx Pneumococcal Vaccination/Date Given: No Immunizations Up to Date: Yes Travel Risk - International Travel Have you traveled outside of the country in past 3 weeks: No - Coronavirus Screening Are you exhibiting any of the following symptoms?: No Close contact with a COVID-19 positive Pt in past 14-21 Days: No - Vaccine Status Have you recieved a Covid-19 vaccination: No - Review of Systems Constitutional: No Fever, No Chills Eyes: No Symptoms Ears, Nose, & Throat: No Symptoms Respiratory: No Cough, No Dyspnea Cardiac: No Chest Pain, No Edema, No Syncope Abdominal/Gastrointestinal: Abdominal Pain, No Nausea, No Vomiting, No Diarrhea Genitourinary Symptoms: No Dysuria Musculoskeletal: No Back Pain, No Neck Pain Skin: No Rash Neurological: No Dizziness, No Focal Weakness, No Sensory Changes Psychological: No Symptoms Endocrine: No Symptoms Hematologic/Lymphatic: No Symptoms Immunological/Allergic: No Symptoms All Other Systems: Reviewed and Negative - Past Medical History Pertinent Past Medical History: Yes Neurological History: No Pertinent History ENT History: No Pertinent History Cardiac History: No Pertinent History Respiratory History: No Pertinent History Endocrine Medical History: No Pertinent History Musculoskeletal History: Other GI Medical History: Colorectal Cancer, Gallbladder Disease History: No Pertinent History Psycho-Social History: Depression Female Reproductive Disorders: No Pertinent History Other Medical History: R SHOULDER RTC ISSUES NO SURGERY,chronic back pain, hx of colon ca. bad knees needs replacements - Past Surgical History Past Surgical History: Yes Neuro Surgical History: No Pertinent History Cardiac: No Pertinent History Respiratory: No Pertinent History Gastrointestinal: Appendectomy, Cholecystectomy, Colon Resection Genitourinary: No Pertinent History Musculoskeletal: No Pertinent History, Orthopedic Surgery Female Surgical History: Hysterectomy, Tubal Ligation Other Surgical History: port placed - Social History Smoking Status: Never smoker Exposure to second hand smoke: No Drug Use: none Patient Lives Alone: Yes Significant Family History: no pertinent family hx - Nursing Vital Signs Nursing Vital Signs: Initial Vital Signs Temperature 96.4 F 01/12/23 19:45 Pulse Rate 62 01/12/23 19:45 Respiratory Rate 22 01/12/23 19:45 Blood Pressure 160/94 01/12/23 19:45 O2 Sat by Pulse Oximetry 100 01/12/23 19:45 Pain Scale Pain Intensity 2 - Physical Exam General Appearance: no apparent distress, alert Eye Exam: PERRL/EOMI, eyes nml inspection Ears, Nose, Throat Exam: normal ENT inspection, pharynx normal, moist mucous membranes Neck Exam: normal inspection, non-tender, supple, full range of motion Respiratory Exam: normal breath sounds, lungs clear, No respiratory distress Cardiovascular Exam: regular rate/rhythm, normal heart sounds Gastrointestinal/Abdomen Exam: soft, No tenderness, No mass Pelvic Exam: deferred Rectal Exam: deferred Back Exam: normal inspection, normal range of motion, No CVA tenderness, No vertebral tenderness Extremity Exam: normal inspection, normal range of motion, pelvis stable Neurologic Exam: alert, oriented x 3, cooperative, normal mood/affect, nml cerebellar function, sensation nml, No motor deficits Skin Exam: normal color, warm, dry SpO2 Interpretation: normal SpO2: 100 O2 Delivery: Room Air - Course Nursing assessment & vital signs reviewed: Yes - CT Exams Abdomen/Pelvis CT Interpretation: Tele-radiologist Report, Other (aortic athersclerosis) Ordered Tests: Active Orders 24 hr Category Date Time Status IV Insertion STAT Care 01/12/23 22:04 Active ABDOMEN AND PELVIS W/0 CONTRAS [CT] Stat Exams 01/12/23 22:05 Completed AMYLASE Stat Lab 01/12/23 22:35 Completed CBC W DIFF Stat Lab 01/12/23 22:35 Completed CMP Stat Lab 01/12/23 22:35 Completed LIPASE Stat Lab 01/12/23 22:35 Completed Lactic Acid Stat Lab 01/12/23 22:40 Completed UA W/RFX UR CULTURE Stat Lab 01/12/23 22:09 Completed Medication Summary Discontinued Medications Generic Name Dose Route Start Last Admin Trade Name Freq PRN Reason Stop Dose Admin Hydromorphone HCl 0.5 mg 01/12/23 22:04 01/12/23 22:17 Hydromorphone 1 Mg/1ml Inj IV 01/12/23 22:05 0.5 mg STAT ONE Administration Hydromorphone HCl Confirm 01/12/23 22:15 Hydromorphone 1 Mg/1ml Inj Administered 01/12/23 22:16 Dose 1 mg .ROUTE .STK-MED ONE Sodium Chloride 1,000 mls @ 999 mls/hr 01/12/23 22:04 01/13/23 00:18 Sodium Chloride 0.9% 1000 Ml IV 01/12/23 23:04 Infused .Q1H1M STA Infusion Sodium Chloride Confirm 01/12/23 22:15 Sodium Chloride 0.9% 1000 Ml Administered 01/12/23 22:16 Dose 1,000 mls @ ud .ROUTE .STK-MED ONE Ondansetron HCl 4 mg 01/12/23 22:04 01/12/23 22:16 Ondansetron Hcl 4 Mg/2 Ml Vial IV 01/12/23 22:05 4 mg STAT ONE Administration Ondansetron HCl Confirm 01/12/23 22:15 Ondansetron Hcl 4 Mg/2 Ml Vial Administered 01/12/23 22:16 Dose 4 mg .ROUTE .STK-MED ONE Lab/Rad Data: Laboratory Result Diagrams 01/12/23 22:35 01/12/23 22:35 Laboratory Results 01/12/23 01/12/23 01/12/23 Range/Units 22:40 22:35 22:35 WBC 6.0 (4.0-10.5) x10^3/uL RBC 3.85 L (4.1-5.4) x10^6/uL Hgb 10.4 L (12.0-16.0) g/dL Hct 34.2 L (35-47) % MCV 88.8 (78-100) fL MCH 27.0 (26-32) pg MCHC 30.4 L (32-36) g/dL RDW 15.7 H (11.5-14.0) % Plt Count 316 (150-450) x10^3/uL MPV 10.3 (7.5-11.0) fL Gran % 78.6 H (36.0-66.0) % Immature Gran % (Auto) 0.5 H (0.00-0.4) % Nucleat RBC Rel Count 0.0 (0.00-0.1) % Eos # (Auto) 0.01 (0-0.5) x10^3/uL Immature Gran # (Auto) 0.03 (0.00-0.03) x10^3u/L Absolute Lymphs (auto) 0.91 L (1.0-4.6) x10^3/uL Absolute Monos (auto) 0.32 (0.0-1.3) x10^3/uL Absolute Nucleated RBC 0.00 (0.00-0.01) x10^3u/L Lymphocytes % 15.2 L (24.0-44.0) % Monocytes % 5.3 (0.0-12.0) % Eosinophils % 0.2 (0.00-5.0) % Basophils % 0.2 (0.0-0.4) % Absolute Granulocytes 4.72 (1.4-6.9) x10^3/uL Basophils # 0.01 (0-0.4) x10^3/uL Sodium 140 (137-145) mmol/L Potassium 4.2 (3.5-5.1) mmol/L Chloride 101 (98-107) mmol/L Carbon Dioxide 31 H (22-30) mmol/L Anion Gap 12.3 (5-15) MEQ/L BUN 19 H (7-17) mg/dL Creatinine 0.93 (0.52-1.04) mg/dL Estimated GFR > 60.0 ML/MIN Glucose 102 (74-106) mg/dL Lactic Acid 1.1 (0.4-2.0) Calcium 8.6 (8.4-10.2) mg/dL Total Bilirubin 0.30 (0.2-1.3) mg/dL AST 49 H (14-36) U/L ALT 28 (0-35) U/L Alkaline Phosphatase 114 (38-126) U/L Serum Total Protein 7.1 (6.3-8.2) g/dL Albumin 4.0 (3.5-5.0) g/dL Amylase 100 (30-110) U/L Lipase 157 (23-300) U/L Urine Color (Yellow) Urine Appearance (Clear) Urine pH (4.6-8.0) Ur Specific [place] (1.005-1.030) Urine Protein (Negative) Urine Glucose (UA) (Negative) mg/dL Urine Ketones (Negative) Urine Blood (Negative) Urine Nitrite (Negative) Urine Bilirubin (Negative) Urine Urobilinogen (0.2) mg/dL Ur Leukocyte Esterase (Negative) U Hyaline Cast (Auto) (0-2) /LPF Urine Microscopic RBC (0-5) /HPF Urine Microscopic WBC (0-5) /HPF Ur Epithelial Cells (None Seen) /HPF Urine Bacteria (None Seen) /HPF Urine Culture Reflexed (NO) 01/12/23 Range/Units 22:09 WBC (4.0-10.5) x10^3/uL RBC (4.1-5.4) x10^6/uL Hgb (12.0-16.0) g/dL Hct (35-47) % MCV (78-100) fL MCH (26-32) pg MCHC (32-36) g/dL RDW (11.5-14.0) % Plt Count (150-450) x10^3/uL MPV (7.5-11.0) fL Gran % (36.0-66.0) % Immature Gran % (Auto) (0.00-0.4) % Nucleat RBC Rel Count (0.00-0.1) % Eos # (Auto) (0-0.5) x10^3/uL Immature Gran # (Auto) (0.00-0.03) x10^3u/L Absolute Lymphs (auto) (1.0-4.6) x10^3/uL Absolute Monos (auto) (0.0-1.3) x10^3/uL Absolute Nucleated RBC (0.00-0.01) x10^3u/L Lymphocytes % (24.0-44.0) % Monocytes % (0.0-12.0) % Eosinophils % (0.00-5.0) % Basophils % (0.0-0.4) % Absolute Granulocytes (1.4-6.9) x10^3/uL Basophils # (0-0.4) x10^3/uL Sodium (137-145) mmol/L Potassium (3.5-5.1) mmol/L Chloride (98-107) mmol/L Carbon Dioxide (22-30) mmol/L Anion Gap (5-15) MEQ/L BUN (7-17) mg/dL Creatinine (0.52-1.04) mg/dL Estimated GFR ML/MIN Glucose (74-106) mg/dL Lactic Acid (0.4-2.0) Calcium (8.4-10.2) mg/dL Total Bilirubin (0.2-1.3) mg/dL AST (14-36) U/L ALT (0-35) U/L Alkaline Phosphatase (38-126) U/L Serum Total Protein (6.3-8.2) g/dL Albumin (3.5-5.0) g/dL Amylase (30-110) U/L Lipase (23-300) U/L Urine Color Yellow (Yellow) Urine Appearance Clear (Clear) Urine pH 6.0 (4.6-8.0) Ur Specific [place] 1.010 (1.005-1.030) Urine Protein Negative (Negative) Urine Glucose (UA) Negative (Negative) mg/dL Urine Ketones Negative (Negative) Urine Blood Trace (Negative) Urine Nitrite Negative (Negative) Urine Bilirubin Negative (Negative) Urine Urobilinogen 0.2 (0.2) mg/dL Ur Leukocyte Esterase Trace A (Negative) U Hyaline Cast (Auto) 0-2 (0-2) /LPF Urine Microscopic RBC 0-2 (0-5) /HPF Urine Microscopic WBC 0-2 (0-5) /HPF Ur Epithelial Cells None Seen (None Seen) /HPF Urine Bacteria None Seen (None Seen) /HPF Urine Culture Reflexed NO (NO) - Progress Progress: improved, re-examined Progress Note: 01/13/23 01:07 pt symptoms have resolved and she would like to go home and will followup with her this week . I have advised her that more serious pathology could still be evolving undetected and need for close f/u and she prefers out[facility] and has the [place] to make this choice. Counseled pt/family regarding: lab results, diagnosis, need for follow-up, rad results Medical Desision Making - Independent Historian Additional History obtained from: Family - Diagnostic Testing Diagnostic test were ordered, analyzed, and reviewed by me: Yes Radiological Interpretation: Teleradiologist Report - Risk of complications The pt has a high risk of morbidity or mortality based on: Decision regarding hospitilization or escalation of hosp level of care - Departure Departure Disposition: Home Clinical Impression: Abdominal pain of unknown etiology, anemia unknown cause Condition: Good Critical Care Time: No Referrals: DONALD VASQUEZ [Primary Care Provider] - Follow up/PCP as directed Instructions: Severe Abdominal Pain, Adult (DC), Anemia Caused by Low Iron, Adult (DC) Additional Instructions: followup with your Dr this week for further workup and for elevated renal tests and liver test and anemia. we have provided some instructions for low iron but do not know the cause of the anemia and this also needs workup with your Dr. return meantime if dizziness, increased pain or other symptoms of concern.
[2023-01-12] MEDS ORDERED: Hydromorphone 1 mg/ml Injection IV ONE (22:04)
[2023-01-12] MEDS ORDERED: Zofran 4 MG/2 ML VIAL IV ONE (22:04)
[2023-01-12] MEDS ORDERED: Sodium Chloride 0.9% 1000 ML 1,000 ML IV STA (22:04)
[2023-01-12] MEDS ORDERED: Hydromorphone 1 mg/ml Injection ONE (22:15)
[2023-01-12] MEDS ORDERED: Sodium Chloride 0.9% 1000 ML 1,000 ML ONE (22:15)
[2023-01-12] MEDS ORDERED: Zofran 4 MG/2 ML VIAL ONE (22:15)
[2023-01-12 22:27] LABS: Appearance Clear (Clear); Bacteria None Seen /HPF (None Seen); Bilirubin Negative (Negative); Blood Trace (Negative); Epithelial Cells None Seen /HPF (None Seen); Glucose, Urine Negative (Negative); Hyaline Casts 0-2 /LPF (0-2); Ketones Negative (Negative); Leukocyte Esterase Trace (Negative); Nitrite Negative (Negative); Protein,Urine Dip Negative (Negative); RBC 0-2 /HPF (0-5); Urobilinogen 0.2 mg/dL (0.2); WBC 0-2 /HPF (0-5)
[2023-01-12 22:28] LABS: ADD URINE CULTURE? NO (NO)
[2023-01-12 22:42] LABS: Absolute Neutrophil Ct (ANC) 4.72 x10^3/uL (1.4-6.9); BASOPHIL % 0.2 % (0.0-0.4); Basophil (Absolute #) 0.01 x10^3/uL (0-0.4); Eosinophil % 0.2 % (0.00-5.0); Eosinophil (Absolute #) 0.01 x10^3/uL (0-0.5); Hematocrit 34.2 % (35-47); Hemoglobin 10.4 g/dL (12.0-16.0); IMMATURE GRAN # 0.03 x10^3u/L (0.00-0.03); IMMATURE GRAN % 0.5 % (0.00-0.4); Lymphocyte (Absolute #) 0.91 x10^3/uL (1.0-4.6); Lymphocytes % 15.2 % (24.0-44.0); Mean Cell Volume 88.8 fL (78-100); Mean Corpuscular Hgb Concent. 30.4 g/dL (32-36); Mean Platelet Volume 10.3 fL (7.5-11.0); Monocyte (Absolute #) 0.32 x10^3/uL (0.0-1.3); Monocytes % 5.3 % (0.0-12.0); Neutrophil % 78.6 % (36.0-66.0); Platelet Count 316 x10^3/uL (150-450); Red Blood Count 3.85 x10^6/uL (4.1-5.4); Red Cell Distribution Width 15.7 % (11.5-14.0)
[2023-01-12 22:55] LABS: ALKALINE PHOSPHATASE 114 U/L (38-126); AMYLASE 100 U/L (30-110); ANION GAP 12.3 MEQ/L (5-15); BLOOD UREA NITROGEN 19 mg/dL (7-17); CHLORIDE 101 mmol/L (98-107); Calcium 8.6 mg/dL (8.4-10.2); Carbon Dioxide 31 mmol/L (22-30); Creatinine 1 0.93 mg/dL (0.52-1.04); EST GLOMERULAR FILTRATION RATE > 60.0 ML/MIN; Glucose 102 mg/dL (74-106); LIPASE 157 U/L (23-300); Potassium 4.2 mmol/L (3.5-5.1); SGOT/AST 49 U/L (14-36); SGPT/ALT 28 U/L (0-35); SODIUM 140 mmol/L (137-145); Total Protein 7.1 g/dL (6.3-8.2)
--- NOTE | 2023-01-13 00:31 | XRAY ---
CLINICAL HISTORY:abd pain COMPARISON:None TECHNIQUE:A CT scan of the abdomen and pelvis was performed without IV contrast. Coronal and sagittal reconstructive images were also obtained. FINDINGS: Abdomen: The liver is of average size. No focal or diffuse parenchymal abnormality. The portal vein, intrahepatic biliary radicals, and the bile ducts are normal. The spleen, pancreas, and adrenal glands are unremarkable. The kidneys are unremarkable. They are normal in size and shape. No calculi or hydronephrosis. The gallbladder is surgically removed. The ascending colon, the transverse colon, the descending colon, visualized small bowel loops are unremarkable. There is no evidence of significant enlargement of the mesenteric or retroperitoneal lymph nodes. The abdominal aorta shows atherosclerotic changes with calcified plaques. Pelvis: The urinary bladder is unremarkable. The rectosigmoid colon is unremarkable. The uterus is surgically removed. No evidence of pelvic lymphadenopathy. The lumbar spine shows degenerative changes. IMPRESSION: No significant acute abnormality detected in abdomen and pelvis Electronically Signed by: Joyce Starr MD. (01/12/2023 23:29:31 VISUAL DESIGN LEAD)
[2023-01-13 01:06] VITALS: BP 131/57; PULSE 81; RESP 18
[2023-01-13 01:13] VITALS: O2SAT 100
== END 2023-01-13 01:30 | disposition home or self-care (01) ==
LOC: ED 19:43
DX: R10.9 Unspecified abdominal pain (principal); D64.9 Anemia, unspecified; K58.9 Irritable bowel syndrome, unspecified; Z79.891 Long term (current) use of opiate analgesic; Z79.899 Other long term (current) drug therapy; Z28.310 Unvaccinated for COVID-19
CPT/HCPCS: 36000; 36415; 74176; 80053; 81001; 82150; 83605; 83690; 85025; 96360; 96374; 96375; 99284; J1170; J1642; J2405

== ENCOUNTER 2023-11-04 12:23 | Emergency (ER) | payer MEDICARE ==
[2023-11-04 12:39] VITALS: TEMP 98.3
[2023-11-04] MEDS ORDERED: DECADRON 10MG INJ. ONE (12:57)
[2023-11-04] MEDS: DECADRON 10MG INJ. IM ONE (12:59)
[2023-11-04] MEDS ORDERED: TORAdol 30 mg Injection ONE (13:12)
[2023-11-04] MEDS: TORAdol 30 mg Injection IM ONE (13:14)
--- NOTE | 2023-11-04 13:44 | XRAY ---
Indication: Low back pain. No known injury. Multiple contiguous axial images obtained through the lumbar spine. Sagittal and coronal reformatted images obtained. Comparison: CT abdomen/pelvis January 12, 2023. Stable mild osteopenia, mild L1-S1 broad-based disc bulge, moderate bilateral L3-S1 degenerative facet hypertrophy, and tiny multilevel degenerative vacuum disc phenomena again greatest at L4-L5. Again greatest extent seen at L3-L5 levels where there is spinal canal stenosis. No acute fracture or suspicious bony lesions. Sagittal and coronal reformatted images again demonstrates normal lumbar alignment. Vertebral body height/disc spaces maintained. Visualized noncontrasted soft tissues again demonstrates minimal scattered aortoiliac calcifications. Impression: Stable osteopenia, multilevel degenerative disc disease again greatest at L4-L5, and arteriosclerotic disease. Outpatient MRI may yield further information.
--- NOTE | 2023-11-04 15:12 | ERPHSYRPT ---
- History of Present Illness Time Seen by Provider: 11/04/23 13:45 Source: patient Patient Subjective Stated Complaint: Back pain Triage Nursing Assessment: Patient brought into ED per w/c and transferred self to bed. Patient A+O X 3. Patient's skin pink, warm and dry. Patient complains of lower back pain the goes into romero buttocks for 2 months that has gotten worse. Patient complains of pain 10/10. Patient denies injury or trauma. Physician History: 73-year-old female presents to our ED with acute on chronic low back pain. Patient states the characteristic of her pain is typical of her usual back pain. Pain radiates down to both legs. Patient has had it worked up in the past. No interval trauma. No nausea vomiting or diaphoresis. No saddle anesthesia no change in bowel bladder function no recent back procedure. No fever. Patient denies urinary symptomology. Patient otherwise feels well. She voices no other complaints or concerns at this time. Portions of this note were created with voice recognition technology. There may be grammatical, spelling, punctuation or sound alike errors Timing/Duration: today Method of Injury: unknown Quality: aching Back Pain Location: lumbar spine Back Pain Radiation: lower legs Severity of Pain-Max: moderate Severity of Pain-Current: mild Associated Symptoms: denies symptoms Previous symptoms: same symptoms as today Allergies/Adverse Reactions: No Known Drug Allergies Allergy (Verified 11/04/23 12:33) Home Medications: Ropinirole HCl 5 mg PO HS 07/02/16 [History] Dextroamphetamine/Amphetamine [Adderall 30 mg Tablet] 30 mg PO DAILY 04/03/21 [History] Meclizine HCl 25 mg [Antivert 25 mg] 1 tab PO DAILY PRN PRN 07/01/22 [History] Hx Tetanus, Diphtheria Vaccination/Date Given: Yes Hx Influenza Vaccination/Date Given: Yes Hx Pneumococcal Vaccination/Date Given: No Immunizations Up to Date: Yes Travel Risk - International Travel Have you traveled outside of the country in past 3 weeks: No - Emerging Infectious Disease Are you exhibiting symptoms associated with any current EIDs: No - Review of Systems Constitutional: No Symptoms, No Fever, No Chills Eyes: No Symptoms Ears, Nose, & Throat: No Symptoms Respiratory: No Symptoms, No Cough, No Dyspnea Cardiac: No Symptoms, No Chest Pain, No Edema, No Syncope Abdominal/Gastrointestinal: No Symptoms, No Abdominal Pain, No Nausea, No Vomiting, No Diarrhea Genitourinary Symptoms: No Symptoms, No Dysuria Musculoskeletal: No Symptoms, No Back Pain, No Neck Pain Skin: No Symptoms, No Rash Neurological: No Symptoms, No Dizziness, No Focal Weakness, No Sensory Changes Psychological: No Symptoms Endocrine: No Symptoms Hematologic/Lymphatic: No Symptoms Immunological/Allergic: No Symptoms All Other Systems: Reviewed and Negative - Past Medical History Pertinent Past Medical History: Yes Neurological History: No Pertinent History ENT History: No Pertinent History Cardiac History: No Pertinent History Respiratory History: No Pertinent History Endocrine Medical History: No Pertinent History Musculoskeletal History: Other GI Medical History: Colorectal Cancer, Gallbladder Disease History: No Pertinent History Psycho-Social History: Depression Female Reproductive Disorders: No Pertinent History Other Medical History: R SHOULDER RTC ISSUES NO SURGERY,chronic back pain, hx of colon ca. bad knees needs replacements - Past Surgical History Past Surgical History: Yes Neuro Surgical History: No Pertinent History Cardiac: No Pertinent History Respiratory: No Pertinent History Gastrointestinal: Appendectomy, Cholecystectomy, Colon Resection Genitourinary: No Pertinent History Musculoskeletal: No Pertinent History, Orthopedic Surgery Female Surgical History: Hysterectomy, Tubal Ligation Other Surgical History: port placed Significant Family History: no pertinent family hx - Social History Smoking Status: Never smoker Exposure to second hand smoke: No Drug Use: none Patient Lives Alone: Yes - Social Determinants of Health Will the patient participate in the screening: Yes Do you worry about a steady place to live?: No Do you have any problems with any of the following?: No known problems In the past 12 months,have you had to go without utilities?: No Transportation Issues: No Has anyone in your support network made you feel unsafe?: No Have you or anyone in your house had to go without enough: No - Nursing Vital Signs Nursing Vital Signs: Initial Vital Signs Temperature 98.3 F 11/04/23 12:34 Pulse Rate 85 11/04/23 12:34 Respiratory Rate 18 11/04/23 12:34 Blood Pressure 150/69 11/04/23 12:34 O2 Sat by Pulse Oximetry 98 11/04/23 12:34 Pain Scale Pain Intensity 10 - Physical Exam General Appearance: no apparent distress, alert Eye Exam: PERRL/EOMI, eyes nml inspection Ears, Nose, Throat Exam: normal ENT inspection Neck Exam: normal inspection, non-tender, supple, full range of motion, No meningismus, No midline tenderness Respiratory Exam: normal breath sounds, lungs clear, airway intact, No respiratory distress Cardiovascular Exam: regular rate/rhythm, normal heart sounds, normal peripheral pulses Gastrointestinal Exam: soft, No tenderness, No mass Back Exam: other (Some tenderness to palpation lumbar spine overlying soft tissue intact. 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, normal mood/affect, nml station & gait, sensation nml, No motor deficits Skin Exam: normal color, warm, dry, No rash Lymphatic Exam: No adenopathy SpO2 Interpretation: normal SpO2: 98 O2 Delivery: Room Air - Course Nursing assessment & vital signs reviewed: Yes - CT Exams Lumbar Spine CT Interpretation: Tele-radiologist Report (Osteopenia, multilevel degenerative disc disease L1-S1 spinal canal stenosis.) Ordered Tests: Active Orders 24 hr Category Date Time Status LUMBAR SPINE W/O [CT] Stat Exams 11/04/23 12:54 Completed Medication Summary Discontinued Medications Generic Name Dose Route Start Last Admin Trade Name Freq PRN Reason Stop Dose Admin Dexamethasone Sodium Phosphate 10 mg 11/04/23 12:55 11/04/23 12:59 Dexamethasone Sod Phosphate 10 Mg/Ml IM 11/04/23 12:56 10 mg STAT ONE Administration Dexamethasone Sodium Phosphate Confirm 11/04/23 12:57 Dexamethasone Sod Phosphate 10 Mg/Ml Administered 11/04/23 12:58 Dose 10 mg .ROUTE .[facility] ONE Ketorolac Tromethamine 30 mg 11/04/23 12:56 11/04/23 13:14 Ketorolac Tromethamine 30 Mg/Ml Inj IM 11/04/23 12:57 30 mg STAT ONE Administration Ketorolac Tromethamine Confirm 11/04/23 13:12 Ketorolac Tromethamine 30 Mg/Ml Inj Administered 11/04/23 13:13 Dose 30 mg .ROUTE .STK-MED ONE - Progress Progress: improved Progress Note: 73-year-old female presents to emergency department for evaluation of acute on chronic back pain. Physical exam reveals some tenderness palpation of the lumbar spine. Workup reveals degenerative arthritis of the lumbar spine including discs. Patient received Decadron and Toradol for pain control. Pain significantly improved. Patient states her back pain is much better and states she is ready for discharge. A prescription for Toradol forwarded to patient's pharmacy. Patient agrees to follow-up with her primary care doctor within 48 hours for reevaluation. Portions of this note were created with voice recognition technology. There may be grammatical, spelling, punctuation or sound alike errors Complexity problem addressed is moderate acute complicated. No critical care time. Complexity data reviewed and analyzed is moderate. Test ordered test reviewed results analyzed and correlated clinically with history and physical exam. Risk of complication and or risk of morbidity/mortality patient management is moderate. A prescription for Toradol forwarded to patient's pharmacy. Vital stable. Time spent to discharge patient is approximately 15 minutes. Plan of care established for shared decision making. No social determinants of health present impede follow-up. Portions of this note were created with voice recognition technology. There may be grammatical, spelling, punctuation or sound alike errors 11/04/23 15:20 Counseled pt/family regarding: diagnosis, need for follow-up, rad results - Departure Departure Disposition: Home Clinical Impression: Lumbosacral strain, Osteopenia, Central stenosis of spinal canal, Back pain Condition: Stable Critical Care Time: No Referrals: DONALD VASQUEZ [Primary Care Provider] - Follow up/PCP as directed Additional Instructions: Discharge/Care Plan LARSLEIDY ROLAND was seen on 11/04/23 in the Emergency Room. The patient was counseled regarding Diagnosis,Lab results, Imaging studies, need for follow up and when to return to the Emergency Room. Prescriptions given: Discharge Note I have spoken with the patient and/or caregivers. I have explained the patient's condition, diagnosis and treatment plan based on the information available to me at this time. I have answered the patient's and/or caregiver's questions and addressed any concerns. The patient and/or caregivers have as good understanding of the patient's diagnosis, condition and treatment plan as can be expected at this point. The vital signs have been stable. The patient's condition is stable and appropriate for discharge from the emergency department. The patient will pursue further outpatient evaluation with the primary care physician or other designated or consulting physician as outlined in the discharge instructions. The patient and/or caregivers are agreeable to this plan of care and follow-up instructions have been explained in detail. The patient and/or caregivers have received these instruction. The patient/and or caregivers are aware that any significant change in condition or worsening of symptoms should prompt an immediate return to this or the closest emergency department or call 911. Prescriptions: Ketorolac Trometh 10 mg Tab [TORAdol 10 MG TABLET] 10 mg PO TID 5 Days #15 tablet
[2023-11-04 15:25] VITALS: BP 132/63; PULSE 78; RESP 20; O2SAT 99
== END 2023-11-04 15:25 | disposition home or self-care (01) ==
LOC: ED 12:23
DX: S39.012A Strain of muscle, fascia and tendon of lower back, initial encounter (principal); M85.80 Other specified disorders of bone density and structure, unspecified site; M48.00 Spinal stenosis, site unspecified; M54.9 Dorsalgia, unspecified; Z79.899 Other long term (current) drug therapy
CPT/HCPCS: 72131; 96372; 99283; J1100; J1885

== ENCOUNTER 2024-04-09 22:07 | Emergency (ER) | payer MEDICARE ==
--- NOTE | 2024-04-09 23:19 | ERPHSYRPT ---
- History of Present Illness Time Seen by Provider: 04/09/24 23:19 Historian: patient Exam Limitations: no limitations Physician History: The patient is a female with a history of colon cancer who presents with black vomit. She describes the black vomit as resembling 'Oreos' despite not having consumed any. This episode occurred recently, with a similar incident a few months ago. No blood in her stool, which is normal in color and consistency. No abdominal pain, dizziness, or shortness of breath, but she feels generally weak. A few weeks ago, her hemoglobin level was noted to be 5.7 or 5.9, prompting immediate intervention with six iron infusions at a cancer center. She completed these infusions approximately three weeks ago. Despite this, she continues to feel weak. She underwent an EGD and colonoscopy about a year ago, which did not reveal any active bleeding at the time. She was diagnosed with gastritis or an ulcer in her stomach and esophagus, for which she was prescribed medications including Protonix and sucralfate. Her past medical history includes colon cancer diagnosed 11 years ago, treated with surgery and chemotherapy. She does not have an ostomy and recalls the cancer being stage two, with involvement beyond the colon wall into the fat. Timing/Duration: today Activities at Onset: none Quality: other (none) Abdominal Pain Onset Location: other (NA) Pain Radiation: no radiation Severity of Pain-Max: none Severity of Pain-Current: none Modifying Factors: Worsens With: vomiting Associated Symptoms: nausea, vomiting, No back, No chest pain, No diaphoresis, No diarrhea, No fever/chills, No loss of appetite Previous symptoms: same symptoms as today Allergies/Adverse Reactions: No Known Drug Allergies Allergy (Verified 11/04/23 12:33) Home Medications: Ropinirole HCl 5 mg PO HS 07/02/16 [History] Dextroamphetamine/Amphetamine [Adderall 30 mg Tablet] 30 mg PO DAILY 04/03/21 [History] Meclizine HCl 25 mg [Antivert 25 mg] 1 tab PO DAILY PRN PRN 07/01/22 [History] Hx Tetanus, Diphtheria Vaccination/Date Given: Yes Hx Influenza Vaccination/Date Given: Yes Hx Pneumococcal Vaccination/Date Given: No Travel Risk - Emerging Infectious Disease Are you exhibiting symptoms associated with any current EIDs: No - Review of Systems All Other Systems: Reviewed and Negative - Past Medical History Pertinent Past Medical History: Yes Neurological History: No Pertinent History ENT History: No Pertinent History Cardiac History: No Pertinent History Respiratory History: No Pertinent History Endocrine Medical History: No Pertinent History Musculoskeletal History: Other GI Medical History: Colorectal Cancer, Gallbladder Disease History: No Pertinent History Psycho-Social History: Depression Female Reproductive Disorders: No Pertinent History Other Medical History: R SHOULDER RTC ISSUES NO SURGERY,chronic back pain, hx of colon ca. bad knees needs replacements - Past Surgical History Past Surgical History: Yes Neuro Surgical History: No Pertinent History Cardiac: No Pertinent History Respiratory: No Pertinent History Gastrointestinal: Appendectomy, Cholecystectomy, Colon Resection Genitourinary: No Pertinent History Musculoskeletal: No Pertinent History, Orthopedic Surgery Female Surgical History: Hysterectomy, Tubal Ligation Other Surgical History: port placed Significant Family History: no pertinent family hx - Social History Smoking Status: Never smoker Exposure to second hand smoke: No Drug Use: none Patient Lives Alone: Yes - Social Determinants of Health Will the patient participate in the screening: Yes Do you worry about a steady place to live?: No In the past 12 months,have you had to go without utilities?: No Transportation Issues: No Has anyone in your support network made you feel unsafe?: No Have you or anyone in your house had to go without enough: No - Nursing Vital Signs Nursing Vital Signs: Initial Vital Signs Temperature 98.1 F 04/09/24 23:19 Pulse Rate 75 04/09/24 23:19 Respiratory Rate 16 04/09/24 23:19 Blood Pressure 131/64 04/09/24 23:19 O2 Sat by Pulse Oximetry 100 04/09/24 23:19 Pain Scale Pain Intensity 0 - Physical Exam General Appearance: no apparent distress, thin Eye Exam: eyes nml inspection Ears, Nose, Throat Exam: normal ENT inspection Neck Exam: normal inspection, supple, full range of motion Respiratory Exam: normal breath sounds, lungs clear, airway intact, No respiratory distress Cardiovascular Exam: regular rate/rhythm, normal heart sounds, capillary refill <2 sec, No edema Gastrointestinal/Abdomen Exam: soft, normal bowel sounds, No tenderness, No guarding, No rebound Neurologic Exam: alert, oriented x 3, cooperative Skin Exam: normal color, warm, dry SpO2 Interpretation: normal O2 Delivery: Room Air - Course Nursing assessment & vital signs reviewed: Yes Ordered Tests: Medication Summary Discontinued Medications Generic Name Dose Route Start Last Admin Trade Name Indira PRN Reason Stop Dose Admin Heparin Sodium (Beef Lung) 500 units 04/10/24 01:30 Heparin Lock Flush Pf 500 Units/5 Ml Syringe PORT FLUSH 05/10/24 01:29 PRN PRN IV PORT FLUSH Heparin Sodium (Beef Lung) Confirm 04/10/24 01:35 Heparin Lock Flush Pf 500 Units/5 Ml Syringe Administered 04/10/24 01:36 Dose 500 units .ROUTE .[facility] ONE Lab/Rad Data: Laboratory Result Diagrams 04/09/24 00:55 04/09/24 00:55 Laboratory Results 04/09/24 04/09/24 04/09/24 Range/Units 00:55 00:55 00:55 WBC (3.98-10.04) x10^3/uL RBC (3.93-5.22) x10^6/uL Hgb (11.2-15.7) g/dL Hct (34.1-44.9) % MCV (79.4-94.8) fL MCH (25.6-32.2) pg MCHC (32.2-35.5) g/dL RDW (11.7-14.4) % Plt Count (182-369) x10^3/uL MPV (9.4-12.3) fL Gran % (34.0-71.1) % Immature Gran % (Auto) (0.001-0.429) % Nucleat RBC Rel Count (0.00-0.2) % Eos # (Auto) (0.04-0.36) x10^3/uL Immature Gran # (Auto) (0.001-0.031) x10^3u/L Absolute Lymphs (auto) (1.18-3.74) x10^3/uL Absolute Monos (auto) (0.24-0.86) x10^3/uL Absolute Nucleated RBC (0.00-0.012) x10^3u/L Lymphocytes % (19.3-51.7) % Monocytes % (4.7-12.5) % Eosinophils % (0.7-5.8) % Basophils % (0.1-1.2) % Absolute Granulocytes (1.56-6.13) x10^3/uL Basophils # (0.01-0.08) x10^3/uL PT 10.3 (9.4-12.5) SECONDS INR 0.94 (0.8-3.0) APTT 26.2 (25.1-36.5) SECONDS Sodium 138 (135-145) mmol/L Potassium 4.3 (3.5-5.1) mmol/L Chloride 107 (98-107) mmol/L Carbon Dioxide 24 (22-30) mmol/L Anion Gap 11.4 (5-15) MEQ/L BUN 27 H (7-17) mg/dL Creatinine 0.67 (0.52-1.04) mg/dL Estimated GFR 92.8 ML/MIN Glucose 100 (74-106) mg/dL Calcium 9.3 (8.4-10.2) mg/dL Total Bilirubin 0.20 (0.2-1.3) mg/dL AST 38 H (14-36) U/L ALT 23 (0-35) U/L Alkaline Phosphatase 67 (38-126) U/L Serum Total Protein 6.7 (6.3-8.2) g/dL Albumin 3.8 (3.5-5.0) g/dL Slides for Path Review ABO Group A Rh Factor POSITIVE Antibody Screen NEGATIVE (NEGATIVE) 04/09/24 Range/Units 00:55 WBC 6.5 (3.98-10.04) x10^3/uL RBC 3.56 L (3.93-5.22) x10^6/uL Hgb 9.1 L (11.2-15.7) g/dL Hct 30.4 L (34.1-44.9) % MCV 85.4 (79.4-94.8) fL MCH 25.6 (25.6-32.2) pg MCHC 29.9 L (32.2-35.5) g/dL RDW 22.9 H (11.7-14.4) % Plt Count 277 (182-369) x10^3/uL MPV 10.2 (9.4-12.3) fL Gran % 60.7 (34.0-71.1) % Immature Gran % (Auto) 0.5 H (0.001-0.429) % Nucleat RBC Rel Count 0.0 (0.00-0.2) % Eos # (Auto) 0.15 (0.04-0.36) x10^3/uL Immature Gran # (Auto) 0.03 (0.001-0.031) x10^3u/L Absolute Lymphs (auto) 1.86 (1.18-3.74) x10^3/uL Absolute Monos (auto) 0.50 (0.24-0.86) x10^3/uL Absolute Nucleated RBC 0.00 (0.00-0.012) x10^3u/L Lymphocytes % 28.4 (19.3-51.7) % Monocytes % 7.6 (4.7-12.5) % Eosinophils % 2.3 (0.7-5.8) % Basophils % 0.5 (0.1-1.2) % Absolute Granulocytes 3.97 (1.56-6.13) x10^3/uL Basophils # 0.03 (0.01-0.08) x10^3/uL PT (9.4-12.5) SECONDS INR (0.8-3.0) APTT (25.1-36.5) SECONDS Sodium (135-145) mmol/L Potassium (3.5-5.1) mmol/L Chloride (98-107) mmol/L Carbon Dioxide (22-30) mmol/L Anion Gap (5-15) MEQ/L BUN (7-17) mg/dL Creatinine (0.52-1.04) mg/dL Estimated GFR ML/MIN Glucose (74-106) mg/dL Calcium (8.4-10.2) mg/dL Total Bilirubin (0.2-1.3) mg/dL AST (14-36) U/L ALT (0-35) U/L Alkaline Phosphatase (38-126) U/L Serum Total Protein (6.3-8.2) g/dL Albumin (3.5-5.0) g/dL Slides for Path Review YES ABO Group Rh Factor Antibody Screen (NEGATIVE) - Progress Progress: unchanged Progress Note: Hematemesis Reports an episode of black vomit resembling Oreos, with a history of blood loss and recent iron infusions. Previous EGD and colonoscopy a year ago showed no active bleeding, but has a history of gastritis and esophageal issues treated with Protonix and sucralfate. Differential diagnosis includes upper GI bleed, possibly from the stomach or esophagus. Discussed the need for further e valuation to identify the source of bleeding, including the risks and benefits of EGD and capsule endoscopy. Explained that EGD can help visualize the upper GI tract and identify potential sources of bleeding, while capsule endoscopy can assess the lower intestines. Discussed potential risks such as perforation and bleeding, and the benefits of early detection and treatment. - Order CBC to check hemoglobin and hematocrit levels - Patient has capsule endoscopy to assess for bleeding in the lower intestines scheduled for next week Hb 9.1 which is near her baseline. No need for further evaluation at this time. Stressed importance of not missing appointment next week for capsule endoscopy. Counseled pt/family regarding: lab results, diagnosis, need for follow-up Medical Desision Making - Diagnostic Testing Diagnostic test were ordered, analyzed, and reviewed by me: Yes Radiological Interpretation: Interpreted by me - Risk of complications Low Risk: Low risk of morbidity from additional dx testing or treatment - Departure Departure Disposition: Home Clinical Impression: Anemia, Hematemesis Condition: Good Critical Care Time: No Referrals: DONALD VASQUEZ [Primary Care Provider] - Follow up/PCP as directed Instructions: GI bleed - Discharge instructions
[2024-04-09 23:39] VITALS: PULSE 75; TEMP 98.1
[2024-04-10 01:04] LABS: Absolute Neutrophil Ct (ANC) 3.97 x10^3/uL (1.56-6.13); BASOPHIL % 0.5 % (0.1-1.2); Basophil (Absolute #) 0.03 x10^3/uL (0.01-0.08); Eosinophil % 2.3 % (0.7-5.8); Eosinophil (Absolute #) 0.15 x10^3/uL (0.04-0.36); Hematocrit 30.4 % (34.1-44.9); Hemoglobin 9.1 g/dL (11.2-15.7); IMMATURE GRAN # 0.03 x10^3u/L (0.001-0.031); IMMATURE GRAN % 0.5 % (0.001-0.429); Lymphocyte (Absolute #) 1.86 x10^3/uL (1.18-3.74); Lymphocytes % 28.4 % (19.3-51.7); Mean Cell Volume 85.4 fL (79.4-94.8); Mean Corpuscular Hemoglobin 25.6 pg (25.6-32.2); Mean Corpuscular Hgb Concent. 29.9 g/dL (32.2-35.5); Mean Platelet Volume 10.2 fL (9.4-12.3); Monocytes % 7.6 % (4.7-12.5); Neutrophil % 60.7 % (34.0-71.1); Platelet Count 277 x10^3/uL (182-369); Red Blood Count 3.56 x10^6/uL (3.93-5.22); Red Cell Distribution Width 22.9 % (11.7-14.4); White Blood Count 6.5 x10^3/uL (3.98-10.04)
[2024-04-10 01:18] LABS: ALBUMIN 3.8 g/dL (3.5-5.0); ANION GAP 11.4 MEQ/L (5-15); BILIRUBIN,TOTAL 0.2 mg/dL (0.2-1.3); Calcium 9.3 mg/dL (8.4-10.2); Creatinine 1 0.67 mg/dL (0.52-1.04); EST GLOMERULAR FILTRATION RATE 92.8 ML/MIN; Potassium 4.3 mmol/L (3.5-5.1); Total Protein 6.7 g/dL (6.3-8.2)
[2024-04-10 01:20] LABS: INR 0.94 (0.8-3.0); PROTIME 10.3 SECONDS (9.4-12.5); PTT 26.2 SECONDS (25.1-36.5)
[2024-04-10 01:43] VITALS: BP 134/68; RESP 18; O2SAT 98
[2024-04-10 01:43] LABS: ABO TYPING A; Antibody Screen NEGATIVE (NEGATIVE); RH TYPING POSITIVE
[2024-04-10 03:27] LABS: Slide Review 1 YES
== END 2024-04-10 01:48 | disposition home or self-care (01) ==
LOC: ED 22:07
DX: K92.0 Hematemesis (principal); D64.9 Anemia, unspecified; Z85.038 Personal history of other malignant neoplasm of large intestine; Z79.899 Other long term (current) drug therapy
CPT/HCPCS: 36415; 80053; 85025; 85610; 85730; 86850; 86900; 86901; 99283; J1642